=== PATIENT | female | born 1950 | race Caucasian/White ===

== ENCOUNTER 2017-11-07 03:02 | Observation (INO) | payer OTHER ==
[2017-11-07 04:08] LABS: Blood Gas Oxyhemoglobin 92.1 % (94-97); Blood O2 Saturation 98.2 % (92-98.5)
[2017-11-07] MEDS ORDERED: LORazepam 2 MG/ML VIAL ONE (04:20)
[2017-11-07] MEDS ORDERED: NA CHLORIDE 0.9% 1,000 ML ONE (04:21)
[2017-11-07 05:15] LABS: Absolute Lymphocytes (CBC) 1.5 K/uL (0.7-4.9); Basophils % 0.4 % (0-1.3); Eosinophils % 0.6 % (0-4.4); Hematocrit 41.8 % (36.0-45.0); Lymphocytes % 12.9 % (15.3-44.8); MCH 32.6 pg (27.0-35.0); MCV 93.9 fL (80-100); MPV 9.9 fL (7.6-11.3); Monocytes % 17.2 % (3.3-12.3); RBC Red Blood Cell Count 4.45 M/uL (3.86-4.86)
[2017-11-07 05:25] LABS: Protime INR 0.99
[2017-11-07 05:38] LABS: ALT/SGPT 15 U/L (12-78); AST/SGOT 14 U/L (15-37); Albumin 3.9 g/dL (3.4-5.0); Alkaline Phosphatase 89 U/L (45-117); BUN Blood Urea Nitrogen 12 mg/dL (7-18); Bicarbonate 29 mmol/L (21-32); Bilirubin Direct 0.2 mg/dL (0-0.2); Bilirubin Total 0.6 mg/dL (0.2-1.0); Glucose Level 96 mg/dL (74-106); Magnesium 2.1 mg/dL (1.8-2.4); NT PRO-BNP 4442 pg/mL (<125); Potassium 3.6 mmol/L (3.5-5.1); Protein, Total 7.6 g/dL (6.4-8.2); Sodium Level 131 mmol/L (136-145); Troponin (Emerg Dept Use Only) < 0.02 ng/mL (0.0-0.045)
[2017-11-07 05:44] LABS: Platelet Estimate ADEQ; Platelets, Giant FEW
[2017-11-07 05:46] LABS: Blood Morphology Comment NOT SEEN (NOT SEEN)
--- NOTE | 2017-11-07 06:13 | ER ---
Nurse's Notes [facility] Name: Lashonda Stiles Age: 66 yrs Sex: Female : 1950 Arrival Date: 11/07/2017 Time: 03:05 Bed 8 Private MD: Diagnosis: Dyspnea. Pneumonia right lung. COPD exacerbation Presentation: 11/07 03:28 Presenting complaint: Patient states: Shortness of breath that has been going on "for a lp1 while now"; States being in a lot of pain, "My kids took all of my pain meds from me". Transition of care: patient was not received from another setting of care. Onset of symptoms was November 07, 2017. Risk Assessment: Do you want to hurt yourself or someone else? Patient reports no desire to harm self or others. Initial Sepsis Screen: Does the patient meet any 2 criteria? No. Patient's initial sepsis screen is negative. Does the patient have a suspected source of infection? No. Patient's initial sepsis screen is negative. Care prior to arrival: None. 03:28 Method Of Arrival: Ambulatory lp1 03:28 Acuity: SCOOBY 3 lp1 Historical: - Allergies: 03:32 Sulfa (Sulfonamide Antibiotics); lp1 03:32 Zithromax; lp1 03:32 PENICILLINS; lp1 03:32 "Steroids"; lp1 - Home Meds: 03:32 Lorazepam Oral [Active]; Atenolol Oral [Active]; "pain med" [Active]; lp1 - PMHx: 03:32 Atrial Fib; COPD; CHF; Hypertension; Hyperlipidemia; Myocardial infarction; lp1 - PSHx: 03:32 Hysterectomy; Heart stents; lp1 - Immunization history:: Adult Immunizations up to date. - Social history:: Smoking status: Patient uses tobacco products, smokes two packs cigarettes per day. - Ebola Screening: : No symptoms or risks identified at this time. Screenin:32 Abuse screen: Denies threats or abuse. Denies injuries from another. Nutritional lp1 screening: No deficits noted. Tuberculosis screening: No symptoms or risk factors identified. Fall Risk None identified. Assessment: 04:00 General: Appears in no apparent distress. Behavior is anxious, restless. Pain: lp1 Complains of pain in back Pain currently is 6 out of 10 on a pain scale. Neuro: Level of Consciousness is awake, alert, obeys commands. Cardiovascular: Patient's skin is warm and dry. Rhythm is sinus rhythm. Respiratory: Respiratory effort is even, Respiratory pattern is regular, Breath sounds with crackles bilaterally. GI: No deficits noted. : No deficits noted. EENT: No deficits noted. Derm: Skin is fragile, is thin, Skin is dry, Skin is normal. Musculoskeletal: Circulation, motion, and sensation intact. 04:15 Reassessment: Patient agitated, anxious at this time; "I need the doctor to give me lp1 Lorazepam, just 1mg, I haven't slept since last Monday since those kids took all of my medicines". 05:00 Reassessment: Patient resting, eyes closed, respirations unlabored;. lp1 06:12 Reassessment: Dr. Castano at bedside, unable to assess patient, patient sleeping at lp1 this time. 06:50 Reassessment: Patient appears in no apparent distress at this time. Patient resting, lp1 eyes closed, respirations unlabored. 07:00 Reassessment: RECD REPORT FROM JACQUELINE ARAGON. 66WF P/W SOB AND ANXIETY. ADMIT FOR PNEUMONIA, bp ASSIGNED BED 420. Vital Signs: 03:32 BP 162 / 76; Pulse 87; Resp 22; Temp 97.5(O); Pulse Ox 97% on R/A; Weight 63.5 kg; lp1 Height 5 ft. 2 in. (157.48 cm); Pain 6/10; 04:30 BP 143 / 68; Pulse 73; Resp 19; Pulse Ox 95% on R/A; lp1 05:19 BP 146 / 74; Pulse 75; Resp 20; Pulse Ox 93% on R/A; lp1 06:13 BP 139 / 65; Pulse 72; Resp 15; Pulse Ox 93% ; lp1 06:50 BP 124 / 60; Pulse 65; Resp 19; Pulse Ox 92% on R/A; lp1 03:32 Body Mass Index 25.61 (63.50 kg, 157.48 cm) lp1 ED Course: 03:05 Patient arrived in ED. ag3 03:11 Wojciech Pino MD is Attending Physician. pkl 03:28 Jacqueline Dwyer, RN is Primary Nurse. lp1 03:29 Triage completed. lp1 03:32 Arm band placed on left wrist. lp1 03:53 Missed attempt(s): 20 gauge in right antecubital area. ak1 03:59 Inserted saline lock: 22 gauge in left wrist, using aseptic technique. ao 04:00 Patient has correct armband on for positive identification. Bed in low position. Call lp1 light in reach. Side rails up X2. clinical research monitor on. Pulse ox on. NIBP on. 04:01 X-ray completed. Portable x-ray completed in exam room. Patient tolerated procedure kw well. 04:02 XRAY Chest (1 view) In Process Unspecified. EDMS 06:11 Vish Ellison MD is Hospitalizing Provider. pkl 06:51 No provider procedures requiring assistance completed. Patient admitted, IV remains in lp1 place. Administered Medications: 04:26 Drug: NS 0.9% 1000 ml Route: IV; Rate: 100 ml/hr; Site: left wrist; lp1 07:49 Follow up: IV Status: Infusion continued upon admission bp 04:27 Drug: Ativan 1 mg Route: IVP; Site: left wrist; lp1 05:19 Follow up: Response: Marked relief of symptoms lp1 06:18 Not Given (Patient denies pain): morphine 2 mg IVP once lp1 06:18 Not Given (Other Intervention Used): Zofran 2 mg IVP once; over 2 minutes lp1 Outcome: 06:13 Decision to Hospitalize by Provider. pkl 06:51 Condition: stable lp1 06:51 Instructed on the need for admit. 07:47 Admitted to Tele accompanied by tech, family with patient, via stretcher, room 420, bp with chart, Report called to RAMA ARAGON 07:58 Patient left the ED. tw2 Signatures: Dispatcher [employer] EDNJ Wojciech Pino MD MD pkl Laura Walker Laura RN RN lp1 Rand Quezada RN RN ak1 Lux Win RN Joan Burk RN RN tw2 Kt Kaur RN RN Luana Smith 3
--- NOTE | 2017-11-07 06:13 | EDPHYS ---
Physician Documentation [facility] Name: Lashonda Stiles Age: 66 yrs Sex: Female : 1950 Arrival Date: 11/07/2017 Time: 03:05 Bed 8 Private MD: ED Physician Wojciech Pino HPI: 11/07 03:55 This 66 yrs old Female presents to ER via Ambulatory with complaints of pkl Decreased Appetite. 03:55 The patient has shortness of breath at rest. Onset: The symptoms/episode began/occurred pkl 2 week(s) ago. Associated signs and symptoms: Pertinent positives: generalized pain. Pain said her children are taking away all her medications. Historical: - Allergies: 03:32 Sulfa (Sulfonamide Antibiotics); lp1 03:32 Zithromax; lp1 03:32 PENICILLINS; lp1 03:32 "Steroids"; lp1 - Home Meds: 03:32 Lorazepam Oral [Active]; Atenolol Oral [Active]; "pain med" [Active]; lp1 - PMHx: 03:32 Atrial Fib; COPD; CHF; Hypertension; Hyperlipidemia; Myocardial infarction; lp1 - PSHx: 03:32 Hysterectomy; Heart stents; lp1 - Immunization history:: Adult Immunizations up to date. - Social history:: Smoking status: Patient uses tobacco products, smokes two packs cigarettes per day. - Ebola Screening: : No symptoms or risks identified at this time. ROS: 03:55 Eyes: Negative for injury, pain, redness, and discharge, ENT: Negative for injury, pkl pain, and discharge, Neck: Negative for injury, pain, and swelling, Cardiovascular: Negative for chest pain, palpitations, and edema, Respiratory: Negative for shortness of breath, cough, wheezing, and pleuritic chest pain, Abdomen/GI: Negative for abdominal pain, nausea, vomiting, diarrhea, and constipation, Back: Negative for injury and pain, : Negative for injury, bleeding, discharge, and swelling, MS/Extremity: Negative for injury and deformity, Skin: Negative for injury, rash, and discoloration, Neuro: Negative for headache, weakness, numbness, tingling, and seizure. Exam: 03:55 Head/Face: Normocephalic, atraumatic. Eyes: Pupils equal round and reactive to light, pkl extra-ocular motions intact. Lids and lashes normal. Conjunctiva and sclera are non-icteric and not injected. Cornea within normal limits. Periorbital areas with no swelling, redness, or edema. ENT: Nares patent. No nasal discharge, no septal abnormalities noted. Tympanic membranes are normal and external auditory canals are clear. Oropharynx with no redness, swelling, or masses, exudates, or evidence of obstruction, uvula midline. Mucous membranes moist. Neck: Trachea midline, no thyromegaly or masses palpated, and no cervical lymphadenopathy. Supple, full range of motion without nuchal rigidity, or vertebral point tenderness. No Meningismus. Chest/axilla: Normal chest wall appearance and motion. Nontender with no deformity. No lesions are appreciated. Cardiovascular: Regular rate and rhythm with a normal S1 and S2. No gallops, murmurs, or rubs. Normal PMI, no JVD. No pulse deficits. Respiratory: Lungs have equal breath sounds bilaterally, clear to auscultation and percussion. No rales, rhonchi or wheezes noted. No increased work of breathing, no retractions or nasal flaring. Abdomen/GI: Soft, non-tender, with normal bowel sounds. No distension or tympany. No guarding or rebound. No evidence of tenderness throughout. Back: No spinal tenderness. No costovertebral tenderness. Full range of motion. Skin: Warm, dry with normal turgor. Normal color with no rashes, no lesions, and no evidence of cellulitis. MS/ Extremity: Pulses equal, no cyanosis. Neurovascular intact. Full, normal range of motion. Neuro: Awake and alert, GCS 15, oriented to person, place, time, and situation. Cranial nerves II-XII grossly intact. Motor strength 5/5 in all extremities. Sensory grossly intact. Cerebellar exam normal. Normal gait. Vital Signs: 03:32 BP 162 / 76; Pulse 87; Resp 22; Temp 97.5(O); Pulse Ox 97% on R/A; Weight 63.5 kg; lp1 Height 5 ft. 2 in. (157.48 cm); Pain 6/10; 04:30 BP 143 / 68; Pulse 73; Resp 19; Pulse Ox 95% on R/A; lp1 05:19 BP 146 / 74; Pulse 75; Resp 20; Pulse Ox 93% on R/A; lp1 06:13 BP 139 / 65; Pulse 72; Resp 15; Pulse Ox 93% ; lp1 06:50 BP 124 / 60; Pulse 65; Resp 19; Pulse Ox 92% on R/A; lp1 03:32 Body Mass Index 25.61 (63.50 kg, 157.48 cm) lp1 MDM: 06:08 Data reviewed: vital signs, nurses notes, lab test result(s), EKG, radiologic studies, pkl plain films. 06:13 Patient medically screened. pkl 11/07 03:40 Order name: Basic Metabolic Panel pkl 11/07 03:40 Order name: CBC with Diff pkl 11/07 03:40 Order name: LFT's pkl 11/07 03:40 Order name: Magnesium; Complete Time: 05:46 pkl 11/07 03:40 Order name: NT PRO-BNP; Complete Time: 05:46 pkl 11/07 03:40 Order name: PT-INR; Complete Time: 05:38 pkl 11/07 03:40 Order name: Troponin (emerg Dept Use Only); Complete Time: 05:46 pkl 11/07 03:40 Order name: D-Dimer; Complete Time: 05:38 pkl 11/07 03:40 Order name: Basic Metabolic Panel; Complete Time: 05:46 EDMS 11/07 03:40 Order name: CBC with Automated Diff; Complete Time: 05:53 EDMS 11/07 03:40 Order name: Liver (Hepatic) Function; Complete Time: 05:46 EDMS 11/07 03:40 Order name: ABG; Complete Time: 04:39 pkl 11/07 05:21 Order name: Manual Differential; Complete Time: 05:53 EDMS 11/07 06:04 Order name: Lactate EDMS 11/07 03:40 Order name: XRAY Chest (1 view) pkl 11/07 03:40 Order name: EKG; Complete Time: 03:41 pkl 11/07 03:40 Order name: Cardiac monitoring; Complete Time: 04:00 pkl 11/07 03:40 Order name: EKG - Nurse/Tech; Complete Time: 04:00 pkl 11/07 03:40 Order name: IV Saline Lock; Complete Time: 04:35 pkl 11/07 03:40 Order name: Labs collected and sent; Complete Time: 04:35 pkl 11/07 03:40 Order name: O2 Per Protocol; Complete Time: 04:00 pkl 11/07 03:40 Order name: O2 Sat Monitoring; Complete Time: 04:00 pkl 11/07 06:04 Order name: Procalcitonin EDMS Administered Medications: 04:26 Drug: NS 0.9% 1000 ml Route: IV; Rate: 100 ml/hr; Site: left wrist; lp1 07:49 Follow up: IV Status: Infusion continued upon admission bp 04:27 Drug: Ativan 1 mg Route: IVP; Site: left wrist; lp1 05:19 Follow up: Response: Marked relief of symptoms lp1 06:18 Not Given (Patient denies pain): morphine 2 mg IVP once lp1 06:18 Not Given (Other Intervention Used): Zofran 2 mg IVP once; over 2 minutes lp1 Disposition: 11/07/17 06:13 Hospitalization ordered by Vish Ellison for Inpatient Admission. Preliminary diagnosis is Dyspnea. Pneumonia right lung. COPD exacerbation. - Bed requested for Telemetry/MedSurg (Inpatient). - Status is Inpatient Admission. tw2 - Condition is Stable. - Problem is new. - Symptoms are unchanged. UTI on Admission? No Signatures: Dispatcher [employer] EDWV Ivania Myrick RN RN Wojciech Pino MD MD [facility] Galilea Dwyer RN RN lp1 Joan Gipson RN RN tw2 Kt Kaur RN bp Corrections: (The following items were deleted from the chart) 06:33 06:13 Hospitalization Ordered by Vish Ellison MD for Inpatient Admission. Preliminary diagnosis is Dyspnea. Pneumonia right lung. COPD exacerbation. Bed requested for Telemetry/MedSurg (Inpatient). Status is Inpatient Admission. Condition is Stable. Problem is new. Symptoms are unchanged. UTI on Admission? No. pkl 07:58 06:33 11/07/2017 06:13 Hospitalization Ordered by Vish Ellison MD for Inpatient tw2 Admission. Preliminary diagnosis is Dyspnea. Pneumonia right lung. COPD exacerbation. Bed requested for Telemetry/MedSurg (Inpatient). Status is Inpatient Admission. Condition is Stable. Problem is new. Symptoms are unchanged. UTI on Admission? No. mw
--- NOTE | 2017-11-07 06:17 | EKG ---
Test Date: 2017-11-07 Test Time: 03:52:24 Business Team Leader: ANGELICA MEASUREMENT RESULTS: Intervals: Rate: 67 IA: 142 QRSD: 88 QT: 432 QTc: 456 [place]: P: 65 IA: 142 QRS: 14 T: 9 INTERPRETIVE STATEMENTS: Normal sinus rhythm Possible Inferior infarct, age undetermined Abnormal ECG Compared to ECG 11/02/2016 06:32:34 possible Myocardial infarct finding now present Sinus bradycardia no longer present Atrial premature complex(es) no longer present Electronically Signed On 11-07-17 06:17:28 CDT by Emiliano Aguilar
--- NOTE | 2017-11-07 06:22 | P.HP ---
Certification for Inpatient Patient admitted to: Inpatient With expected LOS: >2 Midnights Practitioner: I am a practitioner with admitting privileges, knowledge of patient current condition, hospital course, and medical plan of care. Services: Services provided to patient in accordance with Admission requirements found in Title 42 Section 412.3 of the Code of Federal Regulations Patient History Date of Service: 11/07/17 Reason for admission: COPD exacerbation History of Present Illness: Ms Stiles is a 66 years old woman with history of COPD, tobacco abuse, CAD, mild pulmonary HTN, who start about 3 days ago with productive cough and progressive SOB. She presented to ED agitated, O2 sat was 90% on RA. Subsequenly she was medicated with IV lorazepam. At the time of my evaluation she was very drowsy, and was barely able to provide any history. No fever or chills reported. She denied any chest pain. Per ER staff report, apparently the patient has some family issues, she was complaining that her kids took away her medication. Lab work remarkable for leukocytosis, 11.6K, CXR shows RLL infiltrate, awaiting radiology report. Allergies azithromycin [From Zithromax] Adverse Reaction (Severe, Verified 11/01/16 20:58) Anaphylaxis Sulfa (Sulfonamide Antibiotics Allergy (Uncoded 11/01/16 20:58) Unknown Home medications list reviewed: Yes Home Medications: Albuterol Inhaler [Ventolin Inhaler*] 2 puff IH Q6H PRN 11/02/16 Aspirin [Aspirin EC 81 MG] 81 mg PO DAILY 11/02/16 Atorvastatin Calcium [Lipitor] 80 mg PO BEDTIME 11/02/16 Budesonide/Formoterol Fumarate [Symbicort 160-4.5 Mcg Inhaler] 2 puff IH BID #1 hfa.aer.ad 11/02/16 Butalb/Acetaminophen/Caffeine [Atujva-Dxypqqnn-Nryy 50-300-40] 1 cap PO BID PRN 11/02/16 Clopidogrel Bisulfate [Plavix*] 75 mg PO DAILY 11/02/16 Diphenhydramine [Benadryl*] 25 mg PO BID PRN 11/02/16 Furosemide [Lasix] 20 mg PO DAILY PRN #30 tab 11/02/16 Hydrocodone Bit/Acetaminophen [Hydrocodon-Acetaminophn 10-325] 1 each PO Q4HP PRN 11/02/16 Lorazepam 1 mg PO TID 11/02/16 Magnesium Oxide [Mag 0X Tab] 400 mg PO DAILY #30 tab 11/02/16 Pantoprazole Sodium 40 mg PO DAILY 11/02/16 Quetiapine [Seroquel*] 25 mg PO BID 11/02/16 Trazodone [Desyrel*] 150 mg PO BEDTIME 11/02/16 Venlafaxine HCl [Venlafaxine HCl ER] 75 mg PO BEDTIME 11/02/16 predniSONE [Deltasone*] 10 mg PO DAILY #5 tab 11/02/16 - Past Medical/Surgical History Diabetic: No -: Hypertension -: Coronary artery disease -: Anxiety -: Tobacco abuse -: COPD -: Patient reports a history of cardiac stents. -: Colon resection due to ischemia Psychosocial/ Personal History: The patient is single. She has 3 children. - Family History Family History: Reviewed- Non-Contributory - Social History Smoking Status: Current every day smoker Counseled patient to stop smoking for: less than 10 minutes Alcohol use: No CD- Drugs: No Caffeine use: Yes Place of Residence: Home Review of Systems 10-point ROS is otherwise unremarkable Physical Examination - Physical Exam General: In no apparent distress, Other (sedated due to medication) HEENT: Atraumatic, PERRLA, Mucous membr. moist/pink, EOMI, Sclerae nonicteric Neck: Supple, 2+ carotid pulse no bruit, No LAD, Without JVD or thyroid abnormality Respiratory: Diminished, Crackles/rales (bibasilar crackles), Rhonchi/gurgles ( bilateral rhonchi) Cardiovascular: Regular rate/rhythm, Normal S1 S2 Gastrointestinal: Normal bowel sounds, No tenderness Musculoskeletal: No tenderness Integumentary: No rashes Neurological: Normal strength at 5/5 x4 extr, Normal tone, Normal affect, Abnormal speech (slurred, likely due to sedative medication.) Lymphatics: No axilla or inguinal lymphadenopathy - Studies Laboratory Data (last 24 hrs) 11/07/17 04:56: PT 11.7, INR 0.99 11/07/17 04:56: WBC 11.6 H, Hgb 14.5, Hct 41.8, Plt Count 229 11/07/17 04:56: Sodium 131 L, Potassium 3.6, BUN 12, Creatinine 0.70, Glucose 96 , Magnesium 2.1, Total Bilirubin 0.6, AST 14 L, ALT 15, Alkaline Phosphatase 89 Assessment and Plan - Problems (Diagnosis) (1) Pneumonia Current Visit: Yes Status: Acute Qualifiers: Pneumonia type: due to unspecified organism Laterality: right Lung location: lower lobe of lung Qualified Code(s): J18.1 - Lobar pneumonia, unspecified organism (2) COPD exacerbation Current Visit: Yes Status: Acute (3) Hyponatremia Onset Date: 11/02/16 Current Visit: No Status: Acute (4) CAD (coronary artery disease) Onset Date: 11/02/16 Current Visit: No Status: Chronic Qualifiers: Coronary Disease-Associated Artery/Lesion type: unspecified vessel or lesion type [place] vs. transplanted heart: unspecified whether [place] or transplanted heart Associated angina: angina presence unspecified Qualified Code(s): I25.10 - Atherosclerotic heart disease of [place] coronary artery without angina pectoris (5) Tobacco abuse Onset Date: 11/02/16 Current Visit: No Status: Chronic - Plan The patient will be admitted to the hospital due to COPD exacerbation, likely secondary to RLL penumonia. Lactate and procalcitonin ordered, will start empiric treatment with IV Levaquin, IV fluids, IV steroids and breathing treatments. Will consult social service, to address home situation. - Advance Directives Does patient have a Living Will: No Does patient have a Durable POA for Healthcare: No - Code Status/Comfort Care Code Status Assessed: Yes Code Status: Full Code
[2017-11-07] MEDS ORDERED: ONDANSETRON 4 MG/2 ML VIAL IV PRN (08:29)
[2017-11-07] MEDS ORDERED: NA CHLORIDE 0.9% 1,000 ML IV SCH (08:29)
[2017-11-07] MEDS ORDERED: ALBUTEROL 2.5 MG/3 ML NEB SOL NEB PRN (08:29)
[2017-11-07] MEDS ORDERED: IPRATROPIUM BROM 0.5MG/2.5ML NEB PRN (08:29)
--- NOTE | 2017-11-07 08:43 | RAD REPORT ---
EXAM DESCRIPTION: Jg Single View11/07/2017 4:05 am CLINICAL HISTORY: Shortness breath COMPARISON: 2017 FINDINGS: The lungs are moderately hyperaerated Interstitial pattern within the right base is mildly prominent. The left lung appears clear of acute infiltrate. The heart is normal size IMPRESSION: COPD Mild prominence of the interstitial pattern within the right base may indicate an atypical pneumonia or be chronic changes
[2017-11-07] MEDS ORDERED: KCL 20 MEQ/100 mL IVPB 20 MEQ/100 ML BAG IV SCH (09:00)
[2017-11-07] MEDS: METHYLPREDNISOLONE 40 MG INJ IV SCH ×2 (09:00→18:33)
[2017-11-07] MEDS: ENOXAPARIN 40 MG/0.4 ML SQ SCH (09:28)
[2017-11-07] MEDS: ACETAMINOPHEN 500 MG TAB PO PRN (10:46)
[2017-11-07] MEDS: Levofloxacin 750mg IV 750 MG/150 ML BAG IV SCH (13:40)
[2017-11-07] MEDS ORDERED: DIPHENHYDRAMINE 50 MG/ML VIAL IV PRN (17:49)
[2017-11-07] MEDS ORDERED: HALOPERIDOL LACT 5 MG/ML INJ IV PRN (17:49)
[2017-11-07] MEDS ORDERED: NITROGLYCERIN 0.4 MG/TAB SL PRN (17:50)
[2017-11-07] MEDS: LORazepam 2 MG/ML VIAL IV PRN (18:18)
--- NOTE | 2017-11-07 19:44 | PN ---
Date of Progress Note: 11/07/2017 History: The patient seen and examined. Chart reviewed and case discussed with RN. The patient sta yasmin she is doing better. No acute events overnight. Review of Systems: Negative except as above. Medications: List reviewed. Code Status: Full. Physical Examination: Vital Signs: Temperature 99, heart rate 76, blood pressure 139/69, respirations 18, O2 90% on room a ir. General: Awake, alert, oriented x3. No acute distress. Elderly female, appears older than stated a ge. CV: S1, S2. No murmurs. Peripheral pulses present. Respiratory: Some diminished breath sounds. No wheezing or stridor. Gastrointestinal: Abdomen is soft, nontender, nondistended. Positive bowel sounds. Extremities: No clubbing, cyanosis, or edema. Neuro: Awake, alert, oriented x3. Somewhat agitated. Moves all 4 extremities. Speech is normal. Laboratory Data: Sodium 131, potassium 3.6, chloride 95, CO2 29, BUN 12, creatinine 0.7, glucose 96. Lactate 0.7. Procalcitonin less than 0.05. BNP 4442. WBCs 11.6, H and H 14.5 and 41.8, platelets 229, neutrophils 68%. D-dimer 398. Chest x-ray personally reviewed, shows slight prominence of the interstitial pattern with within the right base, may indicate atypical pneumonia or chronic changes. Assessment And Plan: 1.Pneumonia, right lower lobe. We will continue IV antibiotics. Follow up with cultures. 2.Acute chronic obstructive pulmonary disease exacerbation. Continue steroids and nebulizer treatme nt. 3.Hyponatremia. We will continue to monitor. 4.Coronary artery disease, [place] artery and [place] heart without angina. 5.Nicotine dependence with cigarette smoking. Counseled. 6.Altered mental status and agitation. The patient is on multiple medications including lorazepam, hydrocodone, Seroquel, trazodone, and venlafaxine, and there is some history of possible drug diversi on. We will need to further investigate. Social workers involved. The patient's mental status, not quite at her baseline. May be secondary to pneumonia versus medication side effect. No signs of se psis. Her procalcitonin and lactate are negative. She is not tachycardic or tachypneic. She is jose ewhat hypoxic, however, acceptable levels for the patient with chronic obstructive pulmonary disease. 7.Gastrointestinal and deep venous thrombosis prophylaxis has been addressed. We will need to furth er investigate her living situation. May need SNF referral or [facility] placement. We will wean off steroids. /OPHELIA Voice ID: [id number] Report ID: [id number]
[2017-11-07] MEDS: ATENOLOL 25 MG TAB PO SCH (21:00)
[2017-11-07] MEDS: GABAPENTIN 300 MG CAP PO SCH (21:01)
[2017-11-07] MEDS: VENLAFAXINE HCL XR 75 MG CAP PO SCH (21:01)
[2017-11-07] MEDS: ATORVASTATIN 80 MG TAB PO SCH (21:01)
[2017-11-07 23:15] LABS: Urine Appearance CLEAR; Urine Bilirubin NEGATIVE (NEG); Urine Blood TRACE (NEG); Urine Color YELLOW; Urine Glucose NEGATIVE (NEG); Urine Protein NEGATIVE (NEG); Urine Urobilinogen 0.2 mg/dL (0.2-1.0); Urine pH 6.5 (5.0-7.0)
[2017-11-07 23:20] LABS: Urine Microscopic Reflex ORDER UMIC
[2017-11-07 23:34] LABS: Barbiturates POSITIVE (NEGATIVE); Benzodiazepines NEGATIVE (NEGATIVE); Cocaine NEGATIVE (NEGATIVE); METHAMPHETAM NEGATIVE (NEGATIVE); Methadone NEGATIVE (NEGATIVE); Opiates NEGATIVE (NEGATIVE); Phencyclidine NEGATIVE (NEGATIVE); THC Cannibis NEGATIVE (NEGATIVE)
[2017-11-08] MEDS: METHYLPREDNISOLONE 40 MG INJ IV SCH ×3 (00:01→16:10)
[2017-11-08] MEDS: LORazepam 2 MG/ML VIAL IV PRN ×5 (00:01→20:55)
[2017-11-08 00:57] LABS: Urine Bacteria <20 /HPF (<20); Urine Culture Reflex Order NOT NEEDED; Urine RBC <5 /HPF (NONE SEEN)
[2017-11-08 06:37] LABS: Absolute Lymphocytes (CBC) 0.9 K/uL (0.7-4.9); Absolute Monocytes 0.3 K/uL (0.1-1.3); Absolute Neutrophil 5.1 K/uL (1.8-8.0); Basophils % 0.3 % (0-1.3); Hematocrit 40.3 % (36.0-45.0); Lymphocytes % 13.6 % (15.3-44.8); MCV 93.8 fL (80-100); Monocytes % 4.8 % (3.3-12.3)
[2017-11-08 06:56] LABS: BUN Blood Urea Nitrogen 7 mg/dL (7-18); Bicarbonate 27 mmol/L (21-32); Glucose Level 154 mg/dL (74-106); Potassium 4.2 mmol/L (3.5-5.1); Sodium Level 133 mmol/L (136-145)
[2017-11-08] MEDS: GABAPENTIN 300 MG CAP PO SCH ×3 (08:28→20:15)
[2017-11-08] MEDS: PANTOPRAZOLE 40MG TABLET PO SCH (08:28)
[2017-11-08] MEDS: ACETAMINOPHEN 500 MG TAB PO PRN (08:28)
[2017-11-08] MEDS: ATENOLOL 25 MG TAB PO SCH ×2 (08:29→20:17)
[2017-11-08] MEDS: FUROSEMIDE 20 MG TABLET PO SCH (08:30)
[2017-11-08] MEDS: CLOPIDOGREL 75 MG TABLET PO SCH (08:30)
[2017-11-08] MEDS: POTASSIUM CL SA 10 MEQ TAB PO SCH (08:30)
[2017-11-08] MEDS: ENOXAPARIN 40 MG/0.4 ML SQ SCH (08:31)
[2017-11-08] MEDS: Levofloxacin 750mg IV 750 MG/150 ML BAG IV SCH (08:31)
[2017-11-08] MEDS: ACETAMIN/CAFFEINE/BUTALB TAB PO PRN (12:23)
[2017-11-08] MEDS: ATORVASTATIN 80 MG TAB PO SCH (20:14)
[2017-11-08] MEDS: VENLAFAXINE HCL XR 75 MG CAP PO SCH (20:14)
[2017-11-09] MEDS: LORazepam 2 MG/ML VIAL IV PRN ×3 (00:38→08:37)
[2017-11-09] MEDS: METHYLPREDNISOLONE 40 MG INJ IV SCH ×2 (00:57→08:37)
--- NOTE | 2017-11-09 01:16 | DS ---
Date of Discharge: 11/08/2017 Discharge Diagnoses: 1. Right lower lobe pneumonia, resolving. 2. Acute chronic obstructive pulmonary disease exacerbation, improved. 3. Hyponatremia, corrected. 4. Coronary artery disease campo artery and campo heart without angina, stable. 5. Nicotine dependence with cigarette smoking, counseled. 6. Metabolic encephalopathy, resolved. 7. Bipolar disorder. 8. Generalized anxiety disorder, on chronic benzodiazepines. 9. Neuropathy. Hospital Course: The patient is a 66-year-old female with past medical history of COPD, heart disease, pulmonary hypertension, multiple psychiatric conditions including bipolar disorder, not on any mood stabilizer, anxiety disorder, neuropathy, comes in with shortness of breath and productive cough. She was thought to have COPD exacerbation. Her chest x-ray showed right lower lobe infiltrate and she had some mild leukocytosis. The patient was admitted for pneumonia and COPD symptoms. She was started on IV antibiotics. She was confused and disoriented upon arrival and admission. The patient's sedative medications were held. In fact, her home medication list was difficult to obtain. The list that was obtained from the pharmacy and from the primary care physician were different. She had picked up medications at multiple pharmacy locations. Her UDS was only positive for barbiturates, which may be from her migraine headache medication. The patient then finally improved and her mental status cleared. Initially, she was somewhat agitated and aggressive towards myself and the staff. She was seen by Tanisha Dykes. The patient's family was also contacted, who again stated that the patient has had multiple manic episodes, recently has been in a trouble with the law. [facility] also called and I spoke with him. The patient on the day of discharge has been much more alert, oriented x3, not in any acute distress, not talking tangentially, able to ambulate, eating and drinking well, able to carry on a regular conversation. The patient did complain of some mild headache, which was similar to her previous migraines. The patient was given her migraine medication. Otherwise, from a medical standpoint, her pneumonia has essentially resolved. She does not have any cough or sputum production. She is saturating 91% on room air, and she actually does have oxygen at home as well. As a COPD patient, her goal O2 levels are 89% to 91%. The patient was then cleared for discharge to be sent home in a stable condition. Activity: No strenuous activity. Followup: Follow up with primary care physician, Dr. Stephenson, in 2-3 days. I spoke with Dr. Stephenson and his nurse for a significant period of time to discuss her past medical history, her recent medical condition, and her medication list. The patient is definitely on multiple medications, and may be doctor shopping, and there is some questionable history of drug diversion as well which is unable to be further elucidated. The patient will need outpatient psychiatry evaluation and will need to be on mood stabilizer going forward. I recommend that she needs to be weaned off her benzodiazepines. She is at risk for overdose due to her multiple chronic pain medications and benzodiazepines together. She has an unknown history of alcohol use. Diet: Heart healthy. Activity: No driving or operating heavy machinery while on any narcotics or benzodiazepine. Physical Examination: General: Awake, alert, oriented x3, not in any acute distress. Appears older than stated age. CV: S1, S2. No murmurs. Respiratory: Moving air well bilaterally. No wheezing or stridor. No tachypnea. Gastrointestinal: Abdomen is soft, nontender, nondistended. Positive bowel sounds. Extremities: No clubbing, cyanosis, or edema. Neurologic: Nonfocal. Psych: Mood is slightly anxious. Affect is congruent with mood. Insight and judgment are fair. /OPHELIA Voice ID: [id number] Report ID: [id number]
[2017-11-09] MEDS: ACETAMINOPHEN 500 MG TAB PO PRN (03:39)
[2017-11-09] MEDS: PANTOPRAZOLE 40MG TABLET PO SCH (08:36)
[2017-11-09] MEDS: GABAPENTIN 300 MG CAP PO SCH (08:37)
[2017-11-09] MEDS: FUROSEMIDE 20 MG TABLET PO SCH (08:37)
[2017-11-09] MEDS: ENOXAPARIN 40 MG/0.4 ML SQ SCH (08:37)
[2017-11-09] MEDS: ATENOLOL 25 MG TAB PO SCH (08:38)
[2017-11-09] MEDS: ACETAMIN/CAFFEINE/BUTALB TAB PO PRN (08:38)
[2017-11-09 08:39] VITALS: BP 109/65
[2017-11-09] MEDS: POTASSIUM CL SA 10 MEQ TAB PO SCH (08:39)
[2017-11-09] MEDS: CLOPIDOGREL 75 MG TABLET PO SCH (08:40)
[2017-11-09] MEDS ORDERED: levoFLOXacin 750 MG TAB PO SCH (09:00)
[2017-11-09 09:07] VITALS: TEMP 97.7
[2017-11-09 09:38] VITALS: O2SAT 96
--- NOTE | 2017-11-09 12:38 | P.PN ---
Date of Service: 11/09/17 Patient was DC yesterday however refused to leave. I spoke with daughters yesterday at length. They state that pt has been in trouble w the police recently and in the past. The mental health deputy also called me and we discussed her mental status. Initially she was confused and altered on admission however currently AAOx3, appropriate. Not manic. No indication to commit patient at this time. I also spoke at length with Dr. Stephenson her PCPs nurse. Patient refused APS assistance. Patient from a medical standpoint is cleared for DC since yesterday. 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 Needs outpt psych eval.
== END 2017-11-09 09:38 | disposition home or self-care (01) ==
LOC: ER 03:02 → INTOOBSV 06:20 → ERHOLD 06:20 → 4TH 07:48
PROVIDERS: ADMIT Internal Medicine; ATTEND Internal Medicine
DX: J44.0 Chronic obstructive pulmonary disease with (acute) lower respiratory infection (principal); J18.9 Pneumonia, unspecified organism; J44.1 Chronic obstructive pulmonary disease with (acute) exacerbation; E87.1 Hypo-osmolality and hyponatremia; I25.10 Atherosclerotic heart disease of native coronary artery without angina pectoris; F17.210 Nicotine dependence, cigarettes, uncomplicated; G93.41 Metabolic encephalopathy; F31.9 Bipolar disorder, unspecified; F41.9 Anxiety disorder, unspecified; G62.9 Polyneuropathy, unspecified; R51 Headache; Z88.2 Allergy status to sulfonamides
CPT/HCPCS: 36415 ×2; 71045; 80048 ×2; 80076; 80307 ×8; 82805; 83605; 83735; 83880; 84145; 84484; 85025 ×2; 85379; 85610; 87070; 87205; 93005; 94760 ×3; 96361; 96374; 99285; G0378 ×2; J1650 ×3; J2920 ×7; J7030 ×2; 81003; 81015